=== PATIENT | female | born 1970 | race Caucasian/White ===

== ENCOUNTER 2017-12-08 06:20 | Day surgery (SDC) | payer OTHER | END 2017-12-08 10:30 | disposition home or self-care (01) | LOC: AMB-ENDOS 06:20 | DX: K59.09 Other constipation (principal); K64.0 First degree hemorrhoids; Z12.11 Encounter for screening for malignant neoplasm of colon ==

== ENCOUNTER 2022-03-26 02:14 | Emergency (ER) | payer OTHER ==
[~2022-03-26] VITALS: Ht 160 cm; Wt 70.3 kg
[2022-03-26] MEDS ORDERED: SYNTHROID75 MCG (02:26)
== END 2022-03-26 09:31 | disposition home or self-care (01) ==
LOC: ER 02:14
DX: R10.9 Unspecified abdominal pain (principal); E03.9 Hypothyroidism, unspecified